=== PATIENT | female | born 1985 | race Caucasian/White ===

== ENCOUNTER 2017-07-14 19:32 | Emergency (ER) | payer OTHER ==
[~2017-07-14] VITALS: Ht 165.1 cm; Wt 87.5 kg
[~2017-07-14 19:32] MED LIST: ALBU90OI INH; AMOCLA875 PO; BCP; BIRTH CONTROL; CYCL10 PO; DOXY100 PO; HYDACE5 PO; HYDACE5325 PO; IBUP600 PO; IBUP800 PO; LEVFLO500 PO; NAPR500 PO; Norco 5-325 Ta1 EACH PO; OMEP20ER PO; OXYACE5T PO; PENVK500 PO; PRED20 PO; PROM25S PR; PSEHYDGUAL PO; Percocet 5-3251 EACH PO; Prednisone20 MG PO; RXCYCL10 PO; RXHYDACE PO; TRAM50 PO; Veetids 500500 MG PO
[2017-07-14] MEDS ORDERED: L-Lysine500 M1 PO (19:47)
[2017-07-14] MEDS ORDERED: CYCL10 PO (19:48)
[2017-07-14] MEDS ORDERED: Camila0.35 MG PO (19:48)
[2017-07-14 21:36] LABS: Influenza A Negative (NEGATIVE); Influenza B Negative (NEGATIVE)
== END 2017-07-14 22:02 | disposition home or self-care (01) ==
LOC: ER 19:32
PROVIDERS: Nurse Practitioner Family
DX: J06.9 Acute upper respiratory infection, unspecified (principal); F17.200 Nicotine dependence, unspecified, uncomplicated; Z88.5 Allergy status to narcotic agent; Z79.899 Other long term (current) drug therapy; Z87.442 Personal history of urinary calculi; Z90.49 Acquired absence of other specified parts of digestive tract
CPT/HCPCS: 87081; 87430; 87804; 99283

== ENCOUNTER 2017-07-23 12:04 | Emergency (ER) | payer OTHER ==
[~2017-07-23] VITALS: Ht 165.1 cm; Wt 87.5 kg
[~2017-07-23 12:04] MED LIST changes: +Camila0.35 MG PO; +L-Lysine500 M1 PO
[2017-07-23] MEDS ORDERED: IBUP600 PO (12:22)
[2017-07-23] MEDS ORDERED: ACET325 PO (12:22)
[2017-07-23] MEDS ORDERED: Cheratussin AC118 ML PO (12:56)
== END 2017-07-23 13:10 | disposition home or self-care (01) ==
LOC: ER 12:04
DX: J06.9 Acute upper respiratory infection, unspecified (principal); Z88.5 Allergy status to narcotic agent; Z79.899 Other long term (current) drug therapy; F17.210 Nicotine dependence, cigarettes, uncomplicated
CPT/HCPCS: 99282

== ENCOUNTER → 2019-05-15 | Outpatient (CLI) | payer OTHER ==
[~2019-05-15] MED LIST changes: +ACET325 PO; +Cheratussin AC118 ML PO
== END | disposition home or self-care (01) ==
LOC: LAB EV 16:19 → LAB SHORT 16:19
DX: J02.9 Acute pharyngitis, unspecified (principal)
CPT/HCPCS: 87081

== ENCOUNTER → 2020-02-16 | Outpatient (CLI) | payer OTHER | END | disposition home or self-care (01) | LOC: LAB 10:45 → LAB SHORT 10:45 | DX: O09.93 Supervision of high risk pregnancy, unspecified, third trimester (principal); O09.513 Supervision of elderly primigravida, third trimester | CPT/HCPCS: 87081; 87653 ==

== ENCOUNTER 2020-03-12 06:03 | Inpatient (IN) | payer OTHER ==
[~2020-03-12] VITALS: Ht 165.1 cm; Wt 96.3 kg
[2020-03-12] MEDS ORDERED: Vitamin B-121000 MCG (06:31)
[2020-03-12] MEDS ORDERED: OMEP20ER (06:31)
[2020-03-12] MEDS ORDERED: HUMALOG100 UNIT/1 (06:32)
[2020-03-12] MEDS ORDERED: FERREX 150150 M1 (06:33)
[2020-03-12] MEDS ORDERED: PRENATAL TABLE1 EAC2 (06:33)
[2020-03-12 06:57] LABS: BASOPHILS ABSOLUTE AUTO 0.03 K/mm3 (0.00-0.23); BASOPHILS PERCENT AUTO 0 % (0-2); EOSINOPHILS ABSOLUTE AUTO 0.15 K/mm3 (0.00-0.68); EOSINOPHILS PERCENT AUTO 2 % (0-6); Hematocrit 32.3 % (33.0-51.0); Hemoglobin 10.7 g/dL (11.5-16.0); IMMATURE GRAN ABSOLUTE AUTO 0.04 K/mm3 (0.00-0.10); IMMATURE GRAN PERCENT AUTO 1 % (0-1); LYMPHOCYTES ABSOLUTE AUTO 2.33 K/mm3 (0.84-5.20); LYMPHOCYTES PERCENT AUTO 27 % (21-46); MONOCYTES ABSOLUTE AUTO 0.79 K/mm3 (0.16-1.47); MONOCYTES PERCENT AUTO 9 % (4-13); Mean Corpuscular HGB Conc 33.1 g/dL (31.5-36.5); Mean Corpuscular Volume 94 fL (80-100); Mean Platelet Volume 10.7 fL (9.1-12.4); NEUTROPHILS ABSOLUTE AUTO 5.25 K/mm3 (1.96-9.15); NEUTROPHILS PERCENT AUTO 61 % (41-73); Platelet Count 234 K/mm3 (150-400); RDW Coefficient Variation 13.2 % (11.7-14.2); RDW Standard Deviation 44.8 fL (35.1-46.3); Red Blood Cell Count 3.45 M/mm3 (3.80-5.20); White Blood Cell Count 8.59 K/mm3 (4.00-11.30)
[2020-03-13 05:00] LABS: Hematocrit 30.2 % (33.0-51.0); Mean Corpuscular HGB Conc 33.1 g/dL (31.5-36.5); Mean Corpuscular Volume 94 fL (80-100); Mean Platelet Volume 10.9 fL (9.1-12.4); Platelet Count 227 K/mm3 (150-400); RDW Coefficient Variation 13.1 % (11.7-14.2); RDW Standard Deviation 44.6 fL (35.1-46.3); Red Blood Cell Count 3.23 M/mm3 (3.80-5.20); White Blood Cell Count 11.56 K/mm3 (4.00-11.30)
[2020-03-13] MEDS ORDERED: IBU800 MG PO (08:02)
--- NOTE | 2020-03-13 08:28 | NUR ---
PT ALREADY HAS A PORTAL ACCOUNT
--- NOTE | 2020-03-13 11:41 | NUR ---
PT GIVEN WRITTEN AND VERBAL DC INSTRUCTIONS. PT VERBALIZES UNDERSTANDING AND QUESTIONS ANSWERED. PT WILL FOLLOW UP WITH DR GRIFFITH WITHIN 5-6 WEEKS OR IF NEEDED SOONER WITH ANY PROBLEMS OR CONCERNS. SHE UNDERSTANDS TO CONTINUE TO CHECK HER FASTING BLOOD SUGARS AND IF THEY REMAIN >[address] BOUDREAUX OFFICE TO BE SEEN SOONER. SHE WILL ALSO FOLLOW UP AT [facility] SCHEDULED FOR PPFU
--- NOTE | 2020-03-13 19:17 | NUR ---
1911: D/C HOME WITH BABY
== END 2020-03-13 19:12 | disposition home or self-care (01) | DRG 807 ==
LOC: OBS 06:03 → BC 06:04 → OBS 06:15 → BC 06:16
PROVIDERS: ADMIT Obstetrics & Gynecology
PROC: 10E0XZZ Delivery of Products of Conception, External Approach (ICD-10-PCS; principal; 2020-03-12)
PROC: 3E033VJ Introduction of Other Hormone into Peripheral Vein, Percutaneous Approach (ICD-10-PCS; 2020-03-12)
PROC: 10907ZC Drainage of Amniotic Fluid, Therapeutic from Products of Conception, Via Natural or Artificial Opening (ICD-10-PCS; 2020-03-12)
DX: O24.424 Gestational diabetes mellitus in childbirth, insulin controlled (principal); Z37.0 Single live birth; Z3A.39 39 weeks gestation of pregnancy; O99.334 Smoking (tobacco) complicating childbirth; F17.210 Nicotine dependence, cigarettes, uncomplicated; Z79.4 Long term (current) use of insulin
CPT/HCPCS: 36415; 82947; 85025; 85027; 86850; 86900; 86901; A9270; J1885; J2590; J3010; J7120

== ENCOUNTER → 2021-09-25 | Outpatient (CLI) | payer OTHER ==
[~2021-09-25] MED LIST changes: +FERREX 150150 M1; +HUMALOG100 UNIT/1; +IBU800 MG PO; +OMEP20ER; +PRENATAL TABLE1 EAC2; +Vitamin B-121000 MCG
[2021-09-27 13:11] LABS: HPV 16 Negative (Negative); HPV 18 Negative (Negative); HPV OTHER HR TYPES Negative (Negative)
== END | disposition home or self-care (01) ==
LOC: LAB SHORT 09:34
PROVIDERS: Obstetrics & Gynecology
DX: Z01.419 Encounter for gynecological examination (general) (routine) without abnormal findings (principal)
CPT/HCPCS: 87624; G0123

== ENCOUNTER → 2023-12-08 | Outpatient (CLI) | payer OTHER | END | disposition home or self-care (01) | LOC: LAB 10:56 → LAB SHORT 10:56 | DX: N39.0 Urinary tract infection, site not specified (principal) | CPT/HCPCS: 87077; 87086; 87186 ==

== ENCOUNTER 2025-04-01 19:32 | Emergency (ER) | payer OTHER ==
[~2025-04-01] VITALS: Ht 165.1 cm; Wt 95.2 kg
[2025-04-01] MEDS ORDERED: Morphine Sulfate 4 MG/1 ML Injection IV ONE (20:10)
[2025-04-01] MEDS ORDERED: Ondansetron HCl 2 MG / ML 2ML Vial IV ONE (20:15)
[2025-04-01 20:33] LABS: BASOPHILS ABSOLUTE AUTO 0.09 K/mm3 (0.00-0.23); BASOPHILS PERCENT AUTO 1 % (0-2); EOSINOPHILS ABSOLUTE AUTO 0.24 K/mm3 (0.00-0.68); EOSINOPHILS PERCENT AUTO 2 % (0-6); Hematocrit 39.3 % (33.0-51.0); Hemoglobin 13.6 g/dL (11.5-16.0); IMMATURE GRAN ABSOLUTE AUTO 0.10 K/mm3 (0.00-0.10); IMMATURE GRAN PERCENT AUTO 1 % (0-1); LYMPHOCYTES ABSOLUTE AUTO 4.26 K/mm3 (0.84-5.20); LYMPHOCYTES PERCENT AUTO 31 % (21-46); MONOCYTES ABSOLUTE AUTO 0.78 K/mm3 (0.16-1.47); MONOCYTES PERCENT AUTO 6 % (4-13); Mean Corpuscular HGB Conc 34.6 g/dL (31.5-36.5); Mean Corpuscular Volume 88 fL (80-100); NEUTROPHILS ABSOLUTE AUTO 8.34 K/mm3 (1.96-9.15); NEUTROPHILS PERCENT AUTO 61 % (41-73); NRBC ABSOLUTE 0.00 K/mm3 (0.00-0.02); NRBC Auto 0.0 /100 WBC (0.0-0.2); RDW Coefficient Variation 13.0 % (11.7-14.2); RDW Standard Deviation 41.9 fL (35.1-46.3)
[2025-04-01 20:34] LABS: Platelet Count 291 K/mm3 (150-400)
[2025-04-01 20:48] LABS: Alanine Aminotransfer (ALT/SGP 34.0 U/L (12-78); Albumin, Blood 4.1 g/dL (3.4-5.0); Albumin/Globulin Ratio 1.1 (0.8-1.8); Anion Gap 11.0 mmol/L (3-11); Aspartate Aminotrans (AST/SGOT 25.0 U/L (12-37); Bilirubin, Total 0.3 mg/dL (0.1-1.0); Blood Urea Nitrogen 15.0 mg/dL (8-24); CO2, Blood 22.0 mmol/L (21-32); Calcium, Blood 9.4 mg/dL (8.5-10.1); Chloride, Blood 108.0 mmol/L (98-108); Creatinine, Blood 0.9 mg/dL (0.40-1.00); Globulin, Blood 3.6 g/dL (2.2-4.0); Glucose, Blood 148.0 mg/dL (70-99); Potassium, Blood 3.6 mmol/L (3.5-5.5); Sodium, Blood 137.0 mmol/L (136-145); Total Protein, Blood 7.7 g/dL (6.4-8.2)
[2025-04-01 21:28] LABS: Source, Urine Clean Catch
[2025-04-01 21:32] LABS: Bilirubin, Urine Neg (Neg); Glucose Qualitative, Urine Neg (Neg); Ketones, Urine 1+ (Neg); Leukocyte Esterase, Urine Neg (Neg); Protein, Urine 2+ (Neg); Specific Gravity, Urine 1.010 (1.003-1.022); Urobilinogen, Urine NORM (Normal)
[2025-04-01 21:33] LABS: Color, Urine Pale Yellow (P-Yellow)
[2025-04-01 21:39] LABS: Red Blood Cells, Urine 50-100 /hpf (0-2); White Blood Cells, Urine 0-2 /hpf (0-5)
[2025-04-01] MEDS ORDERED: ONDA4ODT MM (21:55)
[2025-04-01] MEDS ORDERED: RX Prepack 6 Tabs Oxycodone 5mg UD ONE (22:00)
[2025-04-01] MEDS ORDERED: RX Prepack 2 Tabs Ondansetron ODT 4MG UD ONE (22:00)
[2025-04-01 22:28] VITALS: BP 131/89
== END 2025-04-01 22:53 | disposition home or self-care (01) ==
LOC: ER 19:32
PROVIDERS: Emergency Medicine
DX: N13.2 Hydronephrosis with renal and ureteral calculous obstruction (principal); F17.210 Nicotine dependence, cigarettes, uncomplicated; Z88.5 Allergy status to narcotic agent; Z79.899 Other long term (current) drug therapy
CPT/HCPCS: 74177; 80053; 81001; 83690; 84484; 85025; 93005; 93010; 96361; 96374-59; 96375; 99284-25; A9270; J2270; J2405; J7120; Q9967